=== PATIENT | female | born 1965 | race Caucasian/White ===

== ENCOUNTER 2021-01-28 11:10 | Emergency (ER) | payer MEDICARE, OTHER ==
[~2021-01-28] VITALS: Ht 160 cm; Wt 75.5 kg
[~2021-01-28 11:10] MED LIST: ATIVAN1 MG PO; AUGMENTIN 500-500 MG PO; CLINDAMYCIN HC300 MG PO; NORCO 7.5-3251 EACH PO; OXYCODONE HCL5 MG PO; ULTRAM50 MG PO
[2021-01-28] MEDS ORDERED: PEPCID20 MG PO (16:49)
== END 2021-01-28 16:58 | disposition home or self-care (01) ==
LOC: ED 11:10
DX: N28.9 Disorder of kidney and ureter, unspecified (principal); F17.200 Nicotine dependence, unspecified, uncomplicated
CPT/HCPCS: 76700; 80053; 81001; 83690; 85025; 99284-25

== ENCOUNTER 2022-01-13 14:41 | Emergency (ER) | payer MEDICARE, OTHER ==
[~2022-01-13] VITALS: Ht 160 cm; Wt 75.5 kg
[~2022-01-13 14:41] MED LIST changes: +PEPCID20 MG PO
--- OUTSIDE RECORDS SUMMARY | 2022-01-13 14:42 | XMS ---
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 [facility].D. V[facility] (12 MO.) [facility] [address] [place] [address] TOTAL 3 NOTE: Visits indicate total known visits. ED/UCC VISIT TRACKING (12 MO.) 01/13/2022 14:41 [facility] [place] TYPE: Emergency COMPLAINT: - RT HAND PAIN [facility] DIAGNOSES: - Gastro-esophageal reflux disease without esophagitis - abd,d/v acid feeling in throat and chest - Gastroesophageal Reflux 01/28/2021 11:11 [facility] [place] TYPE: Emergency COMPLAINT: - STOMACH PAIN, DIARRHEA, BLOODY STOOL DIAGNOSES: - Unspecified abdominal pain - Nicotine dependence, unspecified, uncomplicated - Disorder of kidney and ureter, unspecified INPATIENT VISIT TRACKING (12 MO.) No inpatient visits to display in this time frame [email or web address]
[2022-01-13] MEDS ORDERED: DOXYCYCLINE HY100 MG PO (16:20)
[2022-01-13] MEDS ORDERED: MELOXICAM7.5 MG PO (16:20)
== END 2022-01-13 16:34 | disposition home or self-care (01) ==
LOC: ED 14:41
DX: L03.113 Cellulitis of right upper limb (principal); F17.200 Nicotine dependence, unspecified, uncomplicated; Z79.899 Other long term (current) drug therapy
CPT/HCPCS: 36415; 73130; 84550; 85025; 86140; 96374; 99283-25; A9270; J1885

== ENCOUNTER 2023-03-14 07:46 | Emergency (ER) | payer MEDICARE, OTHER ==
[~2023-03-14] VITALS: Ht 160 cm; Wt 77.7 kg
[~2023-03-14 07:46] MED LIST changes: +DOXYCYCLINE HY100 MG PO; +MELOXICAM7.5 MG PO
--- OUTSIDE RECORDS SUMMARY | 2023-03-14 07:55 | XMS ---
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 - Patient eloped before treatment completed. - Patient with suicidal and/or homicidal ideations eloped. Details: Patient LWBS.
[2023-03-14] MEDS ORDERED: MAG-OXIDE400 MG PO (08:03)
[2023-03-14] MEDS ORDERED: CEFDINIR300 MG PO (08:03)
[2023-03-14 08:18] LABS: BASOPHILS 0.3 % (0-2); HEMATOCRIT 46.9 % (35.0-50.0); HEMOGLOBIN 15.7 g/dL (12.0-18.0); LYMPHOCYTES 11.6 % (24-44); MCH 30.4 (27-36); MCHC 33.5 g/dl (30-36); MCV 90.7 fl (81-99); MONOCYTES 8.9 % (0-12); NEUTROPHILS 78.2 % (39-80); PLATELET COUNT 330 K/uL (140-440); RBC 5.16 M/ul (4.3-5.7); RDW 13.9 (10.5-15.0)
[2023-03-14 08:35] LABS: ALBUMIN 3.8 g/dL (3.4-5.0); ALBUMIN/GLOBULIN RATIO 0.86 (1.1-2.4); ANION GAP 16.5 (7-21); BILIRUBIN, TOTAL 0.6 ng/dL (0.2-1.0); BUN/CREATININE RATIO 16.19 (6.0-28.6); CALCIUM 9.4 mg/dL (8.5-10.1); CREATININE, SERUM 2.84 mg/dL (0.55-1.02); POTASSIUM 4.5 mmol/L (3.5-5.1); PROTEIN, TOTAL 8.2 g/dL (6.4-8.2)
[2023-03-14] MEDS ORDERED: ONDANSETRON ODT8 MG PO (10:03)
[2023-03-14 10:22] VITALS: BP 134/86
--- NOTE | 2023-03-14 22:36 | EKG ---
[facility] [address] [place] [address] Signed Sinus tachycardia Right atrial enlargement Nonspecific T wave abnormality Abnormal ECG No previous ECGs available Confirmed by Lenora Bradley MD () on 03/14/2023 10:35:58 PM Electronically Signed By: LENORA BRADLEY MD 03/14/232235 PATIENT NAME: JUAN ALBERTO BOYCE Electrocardiogram DATE OF : 65 PHYSICIAN: LENORA BRADLEY MD REPORT #: [id number] REPORT IS CONFIDENTIAL AND NOT TO BE RELEASED WITHOUT AUTHORIZATION
== END 2023-03-14 10:24 | disposition home or self-care (01) ==
LOC: ED 07:46
PROVIDERS: Emergency Medicine
DX: K52.9 Noninfective gastroenteritis and colitis, unspecified (principal); K21.9 Gastro-esophageal reflux disease without esophagitis; N18.9 Chronic kidney disease, unspecified; F17.200 Nicotine dependence, unspecified, uncomplicated; Z79.899 Other long term (current) drug therapy
CPT/HCPCS: 36415; 80053; 83690; 84484; 85025; 93005; 93010; 96361; 96374; 96375; 99284-25; C9113; J2405; J7030